=== PATIENT | female | born 1970 | race African-American/Black ===

== ENCOUNTER → 2025-06-26 | Day surgery (SDC) | payer OTHER ==
[~2025-06-26] MED LIST: BREZTRI AEROS10.7 GM IH; FAMOTIDINE20 MG PO; LIDOCAINE HCL 2% LOCAL INJ 5 ML SDV VIAL INJ ONE; MIDAZOLAM HCL 2 MG/2 ML VIAL ONE; PLAQUENIL200 MG PO; PROPOFOL IV EMULSION 50 ML IV ONE
[2025-06-26] MEDS: LACTATED RINGER'S 1,000 ML ONE (13:31)
[2025-06-26 15:15] VITALS: BP 121/63; PULSE 73; RESP 16; TEMP 97.7; O2SAT 95
== END | disposition home or self-care (01) ==
LOC: OR 12:19
PROVIDERS: ATTEND Internal Medicine Gastroenterology
DX: K29.80 Duodenitis without bleeding (principal); K29.50 Unspecified chronic gastritis without bleeding; K22.89 Other specified disease of esophagus; K44.9 Diaphragmatic hernia without obstruction or gangrene; K21.9 Gastro-esophageal reflux disease without esophagitis; K64.8 Other hemorrhoids; K57.30 Diverticulosis of large intestine without perforation or abscess without bleeding; K63.5 Polyp of colon; K62.1 Rectal polyp; F17.210 Nicotine dependence, cigarettes, uncomplicated; J45.909 Unspecified asthma, uncomplicated; Z68.33 Body mass index [BMI] 33.0-33.9, adult; Z79.899 Other long term (current) drug therapy; Z01.810 Encounter for preprocedural cardiovascular examination; Z01.818 Encounter for other preprocedural examination
CPT/HCPCS: 43239; 45384; 45385; 81025; 93005; J2003; J2250; J2704; J7121; 45378